=== PATIENT | male | born 1960 | race Hispanic/Latino ===

== ENCOUNTER 2018-01-18 13:10 | Emergency (ER) | payer MEDICARE ==
[2018-01-18] MEDS ORDERED: KEPPRA 1,000 MG/NS 0.75% 100ML 1,000 MG/100 ML BAG IV ONE (14:03)
[2018-01-18 14:58] LABS: Basophils # (Auto) 0.1 K/mm3 (0.0-0.1); Eosinophils # (Auto) 0.3 K/mm3 (0.0-0.4); Hematocrit 36.6 % (35.5-45.6); Hemoglobin 12.3 gm/dl (11.8-15.2); Lymphocytes # (Auto) 1.5 K/mm3 (1.2-5.4); Mean Corpuscular HGB Conc 34 % (32-34); Mean Corpuscular Hemoglobin 31 pg (28-32); Mean Corpuscular Volume 91 fl (84-94); Platelet Count 200 K/mm3 (140-440); Red Blood Count 4.04 M/mm3 (3.65-5.03); Red Cell Distribution Width 15.4 % (13.2-15.2)
[2018-01-18] MEDS ORDERED: FIORICET PO ONE (15:06)
[2018-01-18 15:12] LABS: INR 0.98 (0.87-1.13); Partial Thromboplastin Time 34.9 Sec. (24.2-36.6)
[2018-01-18 15:13] LABS: Creatine Kinase MB 1.5 ng/mL (0.0-4.0)
--- NOTE | 2018-01-18 15:14 | Emergency Department Report ---
HPI - General Chief Complaint: Fall Time Seen by Provider: 01/18/18 15:03 - HPI HPI: Room 5 The patient is a 57-year-old male presenting with a chief complaint of pain after fall. The patient states approximately 2 days ago he slipped and fell. Patient complains of pain in the head, neck and low back from the fall. The patient states this morning he had a seizure when he awakened he has had pain in the back of the left shoulder. The patient states there was a span of 10 days where he did not take his Keppra. Patient states he restarted his Keppra yesterday. Patient gets his pain score of 6-7/10 Location: [See above] Duration: [See above] Quality: Pain Severity:6-7/10 Modifying factors: [see above] Context: [see above] Mode of transportation: Unknown ED Past Medical Hx - Past Medical History Hx Hypertension: Yes Hx GERD: Yes Hx Arthritis: Yes Hx Seizures: Yes Additional medical history: Migraines, A fib - Surgical History Hx Cholecystectomy: Yes Hx Appendectomy: Yes Additional Surgical History: Ablation x2 for A fib, gastric sleeve, bilateral hip replacement - Family History Family history: no significant - Social History Smoking Status: Never Smoker Substance Use Type: None, Alcohol (rarely), Marijuana - Medications Home Medications: Home Medications Medication Instructions Recorded Confirmed Last Taken Type ARIPiprazole [Abilify] 10 mg PO DAILY 01/18/18 01/18/18 Unknown History Butalb/Acetamin/Caff 50-325-40 2 tab PO Q8H PRN #10 tab 01/18/18 Unknown Rx [Fioricet] Cyclobenzaprine [Flexeril] 10 mg PO TID PRN #14 tablet 01/18/18 Unknown Rx Entecavir 1 mg PO QDAY 01/18/18 01/18/18 Unknown History Flecainide [Tambocor] 50 mg PO BID 01/18/18 01/18/18 Unknown History Ibuprofen [Motrin 800 MG tab] 800 mg PO Q8HR PRN #20 tablet 01/18/18 Unknown Rx Omeprazole 40 mg PO QDAY 01/18/18 01/18/18 Unknown History Pregabalin [Lyrica] 100 mg PO BID 01/18/18 01/18/18 Unknown History Quetiapine Fumarate [SEROquel] 1 - 2 tab PO HS PRN 01/18/18 01/18/18 Unknown History Rivaroxaban [Xarelto] 20 mg PO QDAY 01/18/18 01/18/18 Unknown History Tamsulosin [Flomax] 0.4 mg PO QDAY 01/18/18 01/18/18 Unknown History Tolterodine Tartrate [Detrol] 2 mg PO QDAY 01/18/18 01/18/18 Unknown History Trazodone HCl 300 mg PO HS 01/18/18 01/18/18 Unknown History levETIRAcetam [Keppra TAB] 1,500 mg PO BID 01/18/18 01/18/18 Unknown History ED Review of Systems ROS: Stated complaint: NECK/BACK/SHOULDER PAIN Other details as noted in HPI Musculoskeletal: back pain, arthralgia Neurological: headache Physical Exam - Physical Exam Vital Signs: Vital Signs 01/18/18 01/18/18 13:14 14:21 Temperature 98.6 F Pulse Rate 84 67 Respiratory 16 11 L Rate Blood Pressure 105/69 O2 Sat by Pulse 96 96 Oximetry Physical Exam: GENERAL: The patient is well-developed well-nourished male lying on stretcher not appear to be in acute distress. [] HEENT: Normocephalic. Atraumatic. Extraocular motions are intact. Patient has moist mucous membranes. NECK: Supple. Trachea midline. Neck pain but no actual step off CHEST/LUNGS: Clear to auscultation. There is no respiratory distress noted. HEART/CARDIOVASCULAR: Regular. There is no tachycardia. There is no gallop rub or murmur. ABDOMEN: Abdomen is soft, nontender. Patient has normal bowel sounds. There is no abdominal distention. SKIN: There is no rash. There is no edema. There is no diaphoresis. NEURO: The patient is awake, alert, and oriented. The patient is cooperative. The patient has normal speech MUSCULOSKELETAL: There is tenderness to palpation of the posterior aspect of the left shoulder. There is no evidence of acute injury. ED Course Vital Signs 01/18/18 01/18/18 13:14 14:21 Temperature 98.6 F Pulse Rate 84 67 Respiratory 16 11 L Rate Blood Pressure 105/69 O2 Sat by Pulse 96 96 Oximetry ED Medical Decision Making - Lab Data Result diagrams: 01/18/18 14:26 01/18/18 14:26 - Radiology Data Radiology results: report reviewed (CT head, CT cervical spine), image reviewed (CT head, CT cervical spine, lumbar spine x-ray, coccyx x-ray, left shoulder x- ray) interpreted by me: Coccyx x-ray-no acute fracture Lumbar spine x-ray-no acute fracture left shoulder x-ray-no acute fracture or dislocation [address] [address] Cat Scan Report Signed Patient: ROSA TAMAYO JR MR#: [id number] : 1960 Acct:[id number] Age/Sex: 57 / M ADM Date: 01/18/18 Loc: ED Attending Dr: Ordering Physician: ROSIE BROWN MD Date of Service: 01/18/18 Procedure(s): CT head/brain wo con Accession Number(s): [id number] cc: ROSIE BROWN MD FINAL REPORT EXAM: CT HEAD/BRAIN WO CON HISTORY: headache, seizure, fall TECHNIQUE: CT examination of the head without IV contrast PRIORS: None. FINDINGS: No acute air-fluid level visualized in the included air-filled sinuses. Bone windows demonstrate no acute fracture. The brain is without mass, mass effect, hemorrhage, or acute infarct. There is no extra-axial intracranial bleed, brain bleed, or midline shift. The ventricles and sulci are age-appropriate. IMPRESSION: No acute CVA, intracranial bleed, or brain mass Transcribed By: BLAIRE Dictated By: LAUREN SOTO MD Electronically Authenticated By: LAUREN SOTO MD Signed Date/Time: 01/18/181612 DD/ 12 TD/TT: 01/18/[address] [address] Cat Scan Report Signed Patient: ROSA TAMAYO JR MR#: [id number] : 1960 Acct:[id number] Age/Sex: 57 / M ADM Date: 01/18/18 Loc: ED Attending Dr: Ordering Physician: ROSIE BROWN MD Date of Service: 01/18/18 Procedure(s): CT cervical spine wo con Accession Number(s): [id number] cc: ROSIE BROWN MD FINAL REPORT EXAM: CT CERVICAL SPINE WO CON HISTORY: pain after fall TECHNIQUE: CT examination of the cervical spine without IV contrast PRIORS: None. FINDINGS: Prevertebral soft tissues are without swelling. No evidence of cervical fracture or vertebral compression. Multilevel degenerative changes are present at the vertebral endplates, facet joints, and uncinate joints. Anterolisthesis: None. Retrolisthesis: C2-3 trace, C5-6 trace Disc narrowing: C2-3 slight, C3-4 slight, C5-6 severe, C6-7 severe Vertebral endplate, uncinate, and facet degenerative hypertrophic change is associated with bilateral osseous neural foraminal stenosis. IMPRESSION: No acute skeletal pathology in the cervical spine Multilevel degenerative change, trace retrolisthesis, disc narrowing, and neural foraminal stenosis Transcribed By: BAL Dictated By: LAUREN SOTO MD Electronically Authenticated By: LAUREN SOTO MD Signed Date/Time: 01/18/181635 DD/ 35 TD/TT: 01/18/181635 - Medical Decision Making Although patient is allergic to Toradol he states he is able to take ibuprofen - Differential Diagnosis closed head injury, rotator cuff injury, cervical strain, cervical fracture Critical care attestation.: If time is entered above; I have spent that time in minutes in the direct care of this critically ill patient, excluding procedure time. ED Disposition Clinical Impression: Closed head injury, Contusion of left shoulder, Acute lumbar myofascial strain , Seizure disorder, Acute cervical myofascial strain Disposition: - TO HOME OR SELFCARE Is pt being admited?: No Does the pt Need Aspirin: No Condition: Stable Instructions: Muscle Strain (ED) Additional Instructions: Return to the emergency department immediately should you develop worsening symptoms, fever, inability to tolerate food or liquid or any other concerns. Prescriptions: Butalb/Acetamin/Caff 50-325-40 [Fioricet] 2 tab PO Q8H PRN #10 tab PRN Reason: Headache Cyclobenzaprine [Flexeril] 10 mg PO TID PRN #14 tablet PRN Reason: Muscle Spasm Ibuprofen [Motrin 800 MG tab] 800 mg PO Q8HR PRN #20 tablet PRN Reason: Pain Referrals: ZOË DEL CID MD [Staff Physician] - 3-5 Days (Dr. Del Cid is an orthopedic surgeon. Please follow up with him for further evaluation) Time of Disposition: 16:51
[2018-01-18 15:15] LABS: BUN/Creatinine Ratio 22; Blood Urea Nitrogen 13 mg/dL (9-20); Calcium 8.8 mg/dL (8.4-10.2); Hemolysis Index 12
--- NOTE | 2018-01-18 16:18 | Cat Scan Report ---
FINAL REPORT EXAM: CT HEAD/BRAIN WO CON HISTORY: headache, seizure, fall TECHNIQUE: CT examination of the head without IV contrast PRIORS: None. FINDINGS: No acute air-fluid level visualized in the included air-filled sinuses. Bone windows demonstrate no acute fracture. The brain is without mass, mass effect, hemorrhage, or acute infarct. There is no extra-axial intracranial bleed, brain bleed, or midline shift. The ventricles and sulci are age-appropriate. IMPRESSION: No acute CVA, intracranial bleed, or brain mass
--- NOTE | 2018-01-18 16:42 | Cat Scan Report ---
FINAL REPORT EXAM: CT CERVICAL SPINE WO CON HISTORY: pain after fall TECHNIQUE: CT examination of the cervical spine without IV contrast PRIORS: None. FINDINGS: Prevertebral soft tissues are without swelling. No evidence of cervical fracture or vertebral compression. Multilevel degenerative changes are present at the vertebral endplates, facet joints, and uncinate joints. Anterolisthesis: None. Retrolisthesis: C2-3 trace, C5-6 trace Disc narrowing: C2-3 slight, C3-4 slight, C5-6 severe, C6-7 severe Vertebral endplate, uncinate, and facet degenerative hypertrophic change is associated with bilateral osseous neural foraminal stenosis. IMPRESSION: No acute skeletal pathology in the cervical spine Multilevel degenerative change, trace retrolisthesis, disc narrowing, and neural foraminal stenosis
--- NOTE | 2018-01-18 17:29 | XRay Report ---
FINAL REPORT EXAM: XR SHOULDER 2+V LT HISTORY: pain after fall/ shoulder pain TECHNIQUE: 3 views of the left shoulder PRIORS: None. FINDINGS: Degenerative arthrosis is present at the AC joint with articular surface irregularity and marginal hypertrophy. Degenerative change at the glenohumeral joint is associated with articular surface irregularity. No acute fracture or dislocation is evident. IMPRESSION: No acute skeletal pathology
--- NOTE | 2018-01-18 17:29 | XRay Report ---
FINAL REPORT EXAM: XR SPINE SACRUM/COCCYX 2+V HISTORY: pain after fall/ tailbone pain TECHNIQUE: 3 views of the sacrum and coccyx PRIORS: None. FINDINGS: Partly visible bilateral hip arthroplasty. Degenerative change in the visible lumbar spine and pelvis. The visualized sacrum and coccyx are intact. They are partly obscured by superimposed anatomy, limiting the examination. There is no visualized fracture, dislocation, or subluxation. IMPRESSION: No evidence of acute pathology in the visualized skeleton
--- NOTE | 2018-01-18 17:34 | XRay Report ---
FINAL REPORT EXAM: XR SPINE LUMBOSACRAL 2-3V HISTORY: pain after fall/ lower back pain TECHNIQUE: 3 views of the lumbar spine PRIORS: Sacrum and coccyx 01/18/2018 FINDINGS: Prominent stool in rectum and sigmoid. Partly imaged bilateral hip arthroplasty. 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 L6 is sacralized. Vertebral compression fracture: None Anterolisthesis: None Retrolisthesis: None Disc narrowing: L6-S1 narrowed disc may be developmental variation Degenerative change: Multilevel at the vertebral endplates and facet joints. IMPRESSION: No acute skeletal pathology Prominent stool in rectum and sigmoid Suggestion of developmental variation with 6 lumbar type vertebrae and partial sacralization of L6
[2018-01-18 17:51] VITALS: BP 120/70
== END 2018-01-18 17:22 | disposition home or self-care (01) ==
LOC: ED 13:10
DX: S40.012A Contusion of left shoulder, initial encounter (principal); S39.012A Strain of muscle, fascia and tendon of lower back, initial encounter; S16.1XXA Strain of muscle, fascia and tendon at neck level, initial encounter; S09.90XA Unspecified injury of head, initial encounter; G40.909 Epilepsy, unspecified, not intractable, without status epilepticus; I10 Essential (primary) hypertension; K21.9 Gastro-esophageal reflux disease without esophagitis; M19.90 Unspecified osteoarthritis, unspecified site; G43.909 Migraine, unspecified, not intractable, without status migrainosus; W01.0XXA Fall on same level from slipping, tripping and stumbling without subsequent striking against object, initial encounter; Y93.89 Activity, other specified; Y92.89 Other specified places as the place of occurrence of the external cause; Y99.8 Other external cause status
CPT/HCPCS: 36415; 70450; 72100; 72125; 72220; 73030; 80048; 82550; 82553; 83735; 84484; 85025; 85610; 85730; 93005; 93010; 96374; 99285; J1953

== ENCOUNTER 2018-01-25 14:01 | Emergency (ER) | payer SELFPAY ==
[2018-01-25 14:30] VITALS: BP 111/50
== END 2018-01-25 19:58 | disposition left against medical advice (07) ==
LOC: ED 14:01
DX: R10.9 Unspecified abdominal pain (principal); Z53.21 Procedure and treatment not carried out due to patient leaving prior to being seen by health care provider

== ENCOUNTER 2018-02-06 11:23 | Emergency (ER) | payer MEDICARE ==
[2018-02-06] MEDS ORDERED: MOTRIN PO ONE (13:38)
--- NOTE | 2018-02-06 13:43 | Emergency Department Report ---
ED Lower Extremity HPI - General Chief Complaint: Extremity Problem,Nontraumatic Stated Complaint: L HIP PAIN Time Seen by Provider: 02/06/18 13:34 Source: patient Mode of arrival: Ambulatory Limitations: No Limitations - History of Present Illness Initial Comments: This is a 58-year-old male nontoxic, well nourished in appearance, no acute signs of distress presents to the ED with c/o of left hip pain x1 week. Patient stated he had a total hip replacement in 2016. Patient denies any trauma or falling. Patient stated he is not aware of any injuries. Patient denies decreased ROM, numbness or tingling. Patient denies any headache, nausea , vomiting, chest pain, shortness of breathe, fever, chills, back pain. Patient denies decreased or abnormal gait. Patient stated allergies to codeine and Tradol but stated takes MOtrin with no allergies. Patient states past history includes arthritis, GERD, hypertension and seizures. MD Complaint: hip injury -: week(s) (1) Injury: Hip: Left Severity: mild Severity scale (0 -10): 8 Improves With: immobilization Worsens With: movement, palpation Associated Symptoms: ambulatory. denies: snap/pop sensation, swelling, numbness , tingling, unable to bear weight, able to partially bear weight - Related Data Home Medications Medication Instructions Recorded Confirmed Last Taken ARIPiprazole [Abilify] 10 mg PO DAILY 01/18/18 01/18/18 Unknown Entecavir 1 mg PO QDAY 01/18/18 01/18/18 Unknown Flecainide [Tambocor] 50 mg PO BID 01/18/18 01/18/18 Unknown Omeprazole 40 mg PO QDAY 01/18/18 01/18/18 Unknown Pregabalin [Lyrica] 100 mg PO BID 01/18/18 01/18/18 Unknown Quetiapine Fumarate [SEROquel] 1 - 2 tab PO HS PRN 01/18/18 01/18/18 Unknown Rivaroxaban [Xarelto] 20 mg PO QDAY 01/18/18 01/18/18 Unknown Tamsulosin [Flomax] 0.4 mg PO QDAY 01/18/18 01/18/18 Unknown Tolterodine Tartrate [Detrol] 2 mg PO QDAY 01/18/18 01/18/18 Unknown Trazodone HCl 300 mg PO HS 01/18/18 01/18/18 Unknown levETIRAcetam [Keppra TAB] 1,500 mg PO BID 01/18/18 01/18/18 Unknown Previous Rx's Medication Instructions Recorded Last Taken Type Butalb/Acetamin/Caff 50-325-40 2 tab PO Q8H PRN #10 tab 01/18/18 Unknown Rx [Fioricet] Cyclobenzaprine [Flexeril] 10 mg PO TID PRN #14 tablet 01/18/18 Unknown Rx Ibuprofen [Motrin 800 MG tab] 800 mg PO Q8HR PRN #20 tablet 01/18/18 Unknown Rx Ibuprofen [Motrin] 600 mg PO Q8H PRN #30 tablet 02/06/18 Unknown Rx Allergies Allergy/AdvReac Type Severity Reaction Status Date / Time codeine Allergy Rash Verified 01/18/18 13:21 ketorolac [From Toradol] AdvReac Headache Verified 01/18/18 13:21 ED Review of Systems ROS: Stated complaint: L HIP PAIN Other details as noted in HPI Constitutional: denies: chills, fever Eyes: denies: eye pain, eye discharge, vision change ENT: denies: ear pain, throat pain Respiratory: denies: cough, shortness of breath, wheezing Cardiovascular: denies: chest pain, palpitations Endocrine: no symptoms reported Gastrointestinal: denies: abdominal pain, nausea, diarrhea Genitourinary: denies: urgency, dysuria Musculoskeletal: arthralgia. denies: back pain, joint swelling Skin: denies: rash, lesions Neurological: denies: headache, weakness, paresthesias Psychiatric: denies: anxiety, depression Hematological/Lymphatic: denies: easy bleeding, easy bruising ED Past Medical Hx - Past Medical History Hx Hypertension: Yes Hx GERD: Yes Hx Arthritis: Yes Hx Seizures: Yes Additional medical history: Migraines, A fib - Surgical History Hx Cholecystectomy: Yes Hx Appendectomy: Yes Additional Surgical History: Ablation x2 for A fib, gastric sleeve, bilateral hip replacement - Social History Smoking Status: Never Smoker Substance Use Type: None - Medications Home Medications: Home Medications Medication Instructions Recorded Confirmed Last Taken Type ARIPiprazole [Abilify] 10 mg PO DAILY 01/18/18 01/18/18 Unknown History Butalb/Acetamin/Caff 50-325-40 2 tab PO Q8H PRN #10 tab 01/18/18 Unknown Rx [Fioricet] Cyclobenzaprine [Flexeril] 10 mg PO TID PRN #14 tablet 01/18/18 Unknown Rx Entecavir 1 mg PO QDAY 01/18/18 01/18/18 Unknown History Flecainide [Tambocor] 50 mg PO BID 01/18/18 01/18/18 Unknown History Ibuprofen [Motrin 800 MG tab] 800 mg PO Q8HR PRN #20 tablet 01/18/18 Unknown Rx Omeprazole 40 mg PO QDAY 01/18/18 01/18/18 Unknown History Pregabalin [Lyrica] 100 mg PO BID 01/18/18 01/18/18 Unknown History Quetiapine Fumarate [SEROquel] 1 - 2 tab PO HS PRN 01/18/18 01/18/18 Unknown History Rivaroxaban [Xarelto] 20 mg PO QDAY 01/18/18 01/18/18 Unknown History Tamsulosin [Flomax] 0.4 mg PO QDAY 01/18/18 01/18/18 Unknown History Tolterodine Tartrate [Detrol] 2 mg PO QDAY 01/18/18 01/18/18 Unknown History Trazodone HCl 300 mg PO HS 01/18/18 01/18/18 Unknown History levETIRAcetam [Keppra TAB] 1,500 mg PO BID 01/18/18 01/18/18 Unknown History Ibuprofen [Motrin] 600 mg PO Q8H PRN #30 tablet 02/06/18 Unknown Rx ED Physical Exam - General Limitations: No Limitations General appearance: alert, in no apparent distress - Head Head exam: Present: atraumatic, normocephalic - Eye Eye exam: Present: normal appearance, PERRL, EOMI Pupils: Present: normal accommodation - ENT ENT exam: Present: normal exam, mucous membranes moist - Neck Neck exam: Present: normal inspection, full ROM. Absent: tenderness, meningismus, lymphadenopathy - Respiratory Respiratory exam: Present: normal lung sounds bilaterally. Absent: respiratory distress, wheezes, rales, rhonchi, stridor - Cardiovascular Cardiovascular Exam: Present: regular rate, normal rhythm, normal heart sounds. Absent: bradycardia, tachycardia, irregular rhythm, systolic murmur, diastolic murmur, rubs, gallop - GI/Abdominal GI/Abdominal exam: Present: soft, normal bowel sounds - Rectal Rectal exam: Present: deferred - Extremities Exam Extremities exam: Present: normal inspection, full ROM, tenderness, normal capillary refill. Absent: pedal edema, joint swelling, calf tenderness - Expanded Lower Extremity Exam Left Hip exam: Present: normal inspection, full ROM, tenderness, ecchymosis, external rotation, internal rotation, pelvic stability. Absent: swelling, abrasion, laceration, deformity, crepidus, dislocation, erythema, shortening Upper Leg exam: Present: normal inspection, full ROM. Absent: tenderness, swelling, abrasion, laceration, ecchymosis, deformity, crepidus, dislocation, erythema Knee exam: Present: normal inspection, full ROM Lower Leg exam: Present: normal inspection, full ROM Ankle exam: Present: normal inspection, full ROM Foot/Toe exam: Present: normal inspection, full ROM Neuro vascular tendon exam: Present: no vascular compromise. Absent: pulse deficit, abnormal cap refill, motor deficit, sensory deficit, tendon deficit, extremity cold to touch, pallor, abnormal 2-point discrimination, decreased fine /light touch, foot drop, peroneal nerve deficit, significant pain with passive ROM of distal joint Gait: Positive: observed and normal 1 - pain here with ecchymosis - Back Exam Back exam: Present: normal inspection - Neurological Exam Neurological exam: Present: alert, oriented X3, normal gait - Psychiatric Psychiatric exam: Present: depressed, suicidal ideation - Skin Skin exam: Present: warm, dry, intact, normal color. Absent: rash ED Course Vital Signs 02/06/18 11:38 Temperature 97.8 F Pulse Rate 64 Respiratory 18 Rate Blood Pressure 120/64 O2 Sat by Pulse 96 Oximetry - Reevaluation(s) Reevaluation #1: 02/06/18 13:45 Patient is speaking in full sentences with no signs of distress noted. ED Lower Extremity MDM - Medical Decision Making This is a 58-year-old male that presents with left hip strain. Patient is stable and was examined by me. I referred patient to an orthopedic doctor for further evaluation for possible MRI. Ct left LE has been obtained and dictated by the radiologist. Patient is notified of the ct results report with noted by the patient. Patient does have normal gait with no tenderness and no joint swelling. No signs of symptoms of brusitis. No ecchymosis. no joint redness or swelling. Not warm to touch. No signs of cellulites present. Patient was instructed to RICE therapy. Patient received Motrin for pain. Patient is discharged with Motrin. At time of discharge, the patient does not seem toxic or ill in appearance. No acute signs of distress noted. Patient agrees to discharge treatment plan of care. No further questions noted by the patient. When I came to discharge the patient, he asked if he can talk to me. When he started to talk to me, patient stated that he wants to commit suicide and has been depressed. I asked patient if he has a plan and he stated he has about 10 different plans from CURRENT. Patient was then spoken with Zurdo Daugherty and was transferred to the main side for admission and 1013 for psychiatric evaluation. Critical care attestation.: If time is entered above; I have spent that time in minutes in the direct care of this critically ill patient, excluding procedure time. ED Disposition Clinical Impression: Suicidal thoughts Strain of left hip Qualifiers: Encounter type: initial encounter Qualified Code(s): S76.012A - Strain of muscle, fascia and tendon of left hip, initial encounter Depression Qualifiers: Depression Type: unspecified Qualified Code(s): F32.9 - Major depressive disorder, single episode, unspecified Disposition: 09 OP ADMIT IP TO THIS HOSP Is pt being admited?: No Does the pt Need Aspirin: No Condition: Stable Instructions: Ibuprofen (By mouth), Arthralgia (ED) Additional Instructions: Follow-up with a orthopedic doctor in 3-5 days or if symptoms worsen and continue return to emergency room as soon as possible. Prescriptions: Ibuprofen [Motrin] 600 mg PO Q8H PRN #30 tablet PRN Reason: Pain Referrals: PRIMARY CARE, [Primary Care Provider] - 3-5 Days ZOË PLATT MD [Staff Physician] - 3-5 Days [facility] [Outside] - 3-5 Days [facility] [Outside] - 3-5 Days
--- NOTE | 2018-02-06 16:45 | Cat Scan Report ---
FINAL REPORT PROCEDURE: CT left hip without contrast. TECHNIQUE: Computerized axial tomography of the LEFT hip was performed without contrast. HISTORY: Left hip and femur pain. COMPARISON: No prior studies are available for comparison. FINDINGS: There is a total left hip prosthesis in satisfactory position. There are no fractures identified. There is surrounding soft tissues are unremarkable. IMPRESSION: Left hip prosthesis. No evidence of fracture.
--- NOTE | 2018-02-06 17:26 | Emergency Department Report ---
ED Psych HPI - General Chief Complaint: Extremity Problem,Nontraumatic Stated Complaint: L HIP PAIN Time Seen by Provider: 02/06/18 13:34 Source: patient Mode of arrival: Ambulatory - History of Present Illness Initial Comments: Patient is a 58-year-old male who presented with suicidal ideations. Patient's initial complaint was left hip pain for approximately upon his discharge patient was admitted that he is feeling suicidal. Patient states she' s been having thoughts of tying something around his neck and hanging himself. Patient states she's been looking a little looking for ways that he can kill himself. Patient states he would like an evaluation because he is afraid that if he leaves he'll be position where he'll hurt himself. Patient has a history of bipolar disorder and feels as though he is in a depressive phase at this time. - Related Data Home Medications Medication Instructions Recorded Confirmed Last Taken ARIPiprazole [Abilify] 10 mg PO DAILY 01/18/18 01/18/18 Unknown Entecavir 1 mg PO QDAY 01/18/18 01/18/18 Unknown Flecainide [Tambocor] 50 mg PO BID 01/18/18 01/18/18 Unknown Omeprazole 40 mg PO QDAY 01/18/18 01/18/18 Unknown Pregabalin [Lyrica] 100 mg PO BID 01/18/18 01/18/18 Unknown Quetiapine Fumarate [SEROquel] 1 - 2 tab PO HS PRN 01/18/18 01/18/18 Unknown Rivaroxaban [Xarelto] 20 mg PO QDAY 01/18/18 01/18/18 Unknown Tamsulosin [Flomax] 0.4 mg PO QDAY 01/18/18 01/18/18 Unknown Tolterodine Tartrate [Detrol] 2 mg PO QDAY 01/18/18 01/18/18 Unknown Trazodone HCl 300 mg PO HS 01/18/18 01/18/18 Unknown levETIRAcetam [Keppra TAB] 1,500 mg PO BID 01/18/18 01/18/18 Unknown Previous Rx's Medication Instructions Recorded Last Taken Type Butalb/Acetamin/Caff 50-325-40 2 tab PO Q8H PRN #10 tab 01/18/18 Unknown Rx [Fioricet] Cyclobenzaprine [Flexeril] 10 mg PO TID PRN #14 tablet 01/18/18 Unknown Rx Ibuprofen [Motrin 800 MG tab] 800 mg PO Q8HR PRN #20 tablet 01/18/18 Unknown Rx Ibuprofen [Motrin] 600 mg PO Q8H PRN #30 tablet 02/06/18 Unknown Rx Allergies Allergy/AdvReac Type Severity Reaction Status Date / Time codeine Allergy Rash Verified 01/18/18 13:21 ketorolac [From Toradol] AdvReac Headache Verified 01/18/18 13:21 ED Review of Systems ROS: Stated complaint: L HIP PAIN Other details as noted in HPI Comment: All other systems reviewed and negative Constitutional: denies: chills, fever Eyes: denies: eye pain, eye discharge, vision change ENT: denies: ear pain, throat pain Respiratory: denies: cough, shortness of breath, wheezing Cardiovascular: denies: chest pain, palpitations Endocrine: no symptoms reported Gastrointestinal: denies: abdominal pain, nausea, diarrhea Genitourinary: denies: urgency, dysuria Musculoskeletal: arthralgia. denies: back pain, joint swelling Skin: denies: rash, lesions Neurological: denies: headache, weakness, paresthesias Psychiatric: denies: anxiety, depression Hematological/Lymphatic: denies: easy bleeding, easy bruising ED Past Medical Hx - Past Medical History Hx Hypertension: Yes Hx GERD: Yes Hx Arthritis: Yes Hx Seizures: Yes Additional medical history: Migraines, A fib - Surgical History Hx Cholecystectomy: Yes Hx Appendectomy: Yes Additional Surgical History: Ablation x2 for A fib, gastric sleeve, bilateral hip replacement - Social History Smoking Status: Never Smoker Substance Use Type: None - Medications Home Medications: Home Medications Medication Instructions Recorded Confirmed Last Taken Type ARIPiprazole [Abilify] 10 mg PO DAILY 01/18/18 01/18/18 Unknown History Butalb/Acetamin/Caff 50-325-40 2 tab PO Q8H PRN #10 tab 01/18/18 Unknown Rx [Fioricet] Cyclobenzaprine [Flexeril] 10 mg PO TID PRN #14 tablet 01/18/18 Unknown Rx Entecavir 1 mg PO QDAY 01/18/18 01/18/18 Unknown History Flecainide [Tambocor] 50 mg PO BID 01/18/18 01/18/18 Unknown History Ibuprofen [Motrin 800 MG tab] 800 mg PO Q8HR PRN #20 tablet 01/18/18 Unknown Rx Omeprazole 40 mg PO QDAY 01/18/18 01/18/18 Unknown History Pregabalin [Lyrica] 100 mg PO BID 01/18/18 01/18/18 Unknown History Quetiapine Fumarate [SEROquel] 1 - 2 tab PO HS PRN 01/18/18 01/18/18 Unknown History Rivaroxaban [Xarelto] 20 mg PO QDAY 01/18/18 01/18/18 Unknown History Tamsulosin [Flomax] 0.4 mg PO QDAY 01/18/18 01/18/18 Unknown History Tolterodine Tartrate [Detrol] 2 mg PO QDAY 01/18/18 01/18/18 Unknown History Trazodone HCl 300 mg PO HS 01/18/18 01/18/18 Unknown History levETIRAcetam [Keppra TAB] 1,500 mg PO BID 01/18/18 01/18/18 Unknown History Ibuprofen [Motrin] 600 mg PO Q8H PRN #30 tablet 02/06/18 Unknown Rx ED Physical Exam - General Limitations: No Limitations General appearance: alert, in no apparent distress - Head Head exam: Present: atraumatic, normocephalic - Eye Eye exam: Present: normal appearance - ENT ENT exam: Present: mucous membranes moist - Neck Neck exam: Present: normal inspection - Respiratory Respiratory exam: Present: normal lung sounds bilaterally. Absent: respiratory distress - Cardiovascular Cardiovascular Exam: Present: regular rate, normal rhythm. Absent: systolic murmur, diastolic murmur, rubs, gallop - GI/Abdominal GI/Abdominal exam: Present: soft, normal bowel sounds - Rectal Rectal exam: Present: deferred - Extremities Exam Extremities exam: Present: normal inspection - Back Exam Back exam: Present: normal inspection - Neurological Exam Neurological exam: Present: alert, oriented X3 - Psychiatric Psychiatric exam: Present: normal affect, normal mood - Skin Skin exam: Present: warm, dry, intact, normal color. Absent: rash ED Course Vital Signs 02/06/18 11:38 Temperature 97.8 F Pulse Rate 64 Respiratory 18 Rate Blood Pressure 120/64 O2 Sat by Pulse 96 Oximetry ED Medical Decision Making - Lab Data Result diagrams: 02/06/18 17:31 02/06/18 17:31 Lab Results 02/06/18 02/06/18 02/06/18 Range/Units 17:31 17:31 17:31 WBC 9.1 (4.5-11.0) K/mm3 RBC 3.94 (3.65-5.03) M/mm3 Hgb 11.9 (11.8-15.2) gm/dl Hct 36.4 (35.5-45.6) % MCV 92 (84-94) fl MCH 30 (28-32) pg MCHC 33 (32-34) % RDW 15.7 H (13.2-15.2) % Plt Count 255 (140-440) K/mm3 Lymph % (Auto) 31.4 (13.4-35.0) % [place] % (Auto) 10.7 H (0.0-7.3) % Eos % (Auto) 3.3 (0.0-4.3) % Baso % (Auto) 1.0 (0.0-1.8) % Lymph # 2.9 (1.2-5.4) K/mm3 [place] # 1.0 H (0.0-0.8) K/mm3 Eos # 0.3 (0.0-0.4) K/mm3 Baso # 0.1 (0.0-0.1) K/mm3 Seg Neutrophils % 53.6 (40.0-70.0) % Seg Neutrophils # 4.9 (1.8-7.7) K/mm3 Sodium 141 (137-145) mmol/L Potassium 4.8 (3.6-5.0) mmol/L Chloride 101.2 (98-107) mmol/L Carbon Dioxide 31 H (22-30) mmol/L Anion Gap 14 mmol/L BUN 15 (9-20) mg/dL Creatinine 0.6 L (0.8-1.5) mg/dL Estimated GFR > 60 ml/min BUN/Creatinine Ratio 25 % Glucose 93 (75-100) mg/dL Calcium 9.0 (8.4-10.2) mg/dL Salicylates < 0.3 L (2.8-20.0) mg/dL Acetaminophen (10.0-30.0) ug/mL Plasma/Serum Alcohol (0-0.07) % 02/06/18 02/06/18 Range/Units 17:31 17:31 WBC (4.5-11.0) K/mm3 RBC (3.65-5.03) M/mm3 Hgb (11.8-15.2) gm/dl Hct (35.5-45.6) % MCV (84-94) fl MCH (28-32) pg MCHC (32-34) % RDW (13.2-15.2) % Plt Count (140-440) K/mm3 Lymph % (Auto) (13.4-35.0) % [place] % (Auto) (0.0-7.3) % Eos % (Auto) (0.0-4.3) % Baso % (Auto) (0.0-1.8) % Lymph # (1.2-5.4) K/mm3 [place] # (0.0-0.8) K/mm3 Eos # (0.0-0.4) K/mm3 Baso # (0.0-0.1) K/mm3 Seg Neutrophils % (40.0-70.0) % Seg Neutrophils # (1.8-7.7) K/mm3 Sodium (137-145) mmol/L Potassium (3.6-5.0) mmol/L Chloride (98-107) mmol/L Carbon Dioxide (22-30) mmol/L Anion Gap mmol/L BUN (9-20) mg/dL Creatinine (0.8-1.5) mg/dL Estimated GFR ml/min BUN/Creatinine Ratio % Glucose (75-100) mg/dL Calcium (8.4-10.2) mg/dL Salicylates (2.8-20.0) mg/dL Acetaminophen < 5.0 L (10.0-30.0) ug/mL Plasma/Serum Alcohol < 0.01 (0-0.07) % - Medical Decision Making Patient is medically cleared for psych at this time and will be transferred to psych facility Critical care attestation.: If time is entered above; I have spent that time in minutes in the direct care of this critically ill patient, excluding procedure time. ED Disposition Clinical Impression: Suicidal thoughts Strain of left hip Qualifiers: Encounter type: initial encounter Qualified Code(s): S76.012A - Strain of muscle, fascia and tendon of left hip, initial encounter Depression Qualifiers: Depression Type: unspecified Qualified Code(s): F32.9 - Major depressive disorder, single episode, unspecified Disposition: DC/TX-65 PSY HOSP/PSY UNIT Is pt being admited?: No Condition: Stable Instructions: Ibuprofen (By mouth), Arthralgia (ED) Additional Instructions: Follow-up with a orthopedic doctor in 3-5 days or if symptoms worsen and continue return to emergency room as soon as possible. Prescriptions: Ibuprofen [Motrin] 600 mg PO Q8H PRN #30 tablet PRN Reason: Pain Referrals: [facility] [Outside] - 3-5 Days [facility] [Outside] - 3-5 Days PRIMARY CAREMD [Primary Care Provider] - 3-5 Days ZOË PLATT MD [Staff Physician] - 3-5 Days
[2018-02-06 17:46] LABS: Basophils # (Auto) 0.1 K/mm3 (0.0-0.1); Eosinophils # (Auto) 0.3 K/mm3 (0.0-0.4); Eosinophils % (Auto) 3.3 % (0.0-4.3); Hematocrit 36.4 % (35.5-45.6); Hemoglobin 11.9 gm/dl (11.8-15.2); Lymphocytes # (Auto) 2.9 K/mm3 (1.2-5.4); Lymphocytes % (Auto) 31.4 % (13.4-35.0); Mean Corpuscular HGB Conc 33 % (32-34); Mean Corpuscular Hemoglobin 30 pg (28-32); Mean Corpuscular Volume 92 fl (84-94); Monocytes % (Auto) 10.7 % (0.0-7.3); Platelet Count 255 K/mm3 (140-440); Red Blood Count 3.94 M/mm3 (3.65-5.03); Red Cell Distribution Width 15.7 % (13.2-15.2)
[2018-02-06 17:57] LABS: BUN/Creatinine Ratio 25; Blood Urea Nitrogen 15 mg/dL (9-20); Hemolysis Index 1
--- NOTE | 2018-02-07 04:42 | Emergency Department Report ---
HPI - General Chief Complaint: Extremity Problem,Nontraumatic Time Seen by Provider: 02/06/18 13:34 ED Past Medical Hx - Past Medical History Hx Hypertension: Yes Hx GERD: Yes Hx Arthritis: Yes Hx Seizures: Yes Additional medical history: Migraines, A fib - Surgical History Hx Cholecystectomy: Yes Hx Appendectomy: Yes Additional Surgical History: Ablation x2 for A fib, gastric sleeve, bilateral hip replacement - Social History Smoking Status: Never Smoker Substance Use Type: None - Medications Home Medications: Home Medications Medication Instructions Recorded Confirmed Last Taken Type ARIPiprazole [Abilify] 10 mg PO DAILY 01/18/18 01/18/18 Unknown History Butalb/Acetamin/Caff 50-325-40 2 tab PO Q8H PRN #10 tab 01/18/18 Unknown Rx [Fioricet] Cyclobenzaprine [Flexeril] 10 mg PO TID PRN #14 tablet 01/18/18 Unknown Rx Entecavir 1 mg PO QDAY 01/18/18 01/18/18 Unknown History Flecainide [Tambocor] 50 mg PO BID 01/18/18 01/18/18 Unknown History Ibuprofen [Motrin 800 MG tab] 800 mg PO Q8HR PRN #20 tablet 01/18/18 Unknown Rx Omeprazole 40 mg PO QDAY 01/18/18 01/18/18 Unknown History Pregabalin [Lyrica] 100 mg PO BID 01/18/18 01/18/18 Unknown History Quetiapine Fumarate [SEROquel] 1 - 2 tab PO HS PRN 01/18/18 01/18/18 Unknown History Rivaroxaban [Xarelto] 20 mg PO QDAY 01/18/18 01/18/18 Unknown History Tamsulosin [Flomax] 0.4 mg PO QDAY 01/18/18 01/18/18 Unknown History Tolterodine Tartrate [Detrol] 2 mg PO QDAY 01/18/18 01/18/18 Unknown History Trazodone HCl 300 mg PO HS 01/18/18 01/18/18 Unknown History levETIRAcetam [Keppra TAB] 1,500 mg PO BID 01/18/18 01/18/18 Unknown History Ibuprofen [Motrin] 600 mg PO Q8H PRN #30 tablet 02/06/18 Unknown Rx ED Review of Systems ROS: Stated complaint: L HIP PAIN Other details as noted in HPI Constitutional: denies: chills, fever Eyes: denies: eye pain, eye discharge, vision change ENT: denies: ear pain, throat pain Respiratory: denies: cough, shortness of breath, wheezing Cardiovascular: denies: chest pain, palpitations Endocrine: no symptoms reported Gastrointestinal: denies: abdominal pain, nausea, diarrhea Genitourinary: denies: urgency, dysuria Musculoskeletal: arthralgia. denies: back pain, joint swelling Skin: denies: rash, lesions Neurological: denies: headache, weakness, paresthesias Psychiatric: denies: anxiety, depression Hematological/Lymphatic: denies: easy bleeding, easy bruising Physical Exam - Physical Exam Vital Signs: Vital Signs 02/06/18 02/06/18 11:38 19:54 Temperature 97.8 F Pulse Rate 64 70 Respiratory 18 18 Rate Blood Pressure 120/64 Blood Pressure 114/65 [Left] O2 Sat by Pulse 96 99 Oximetry ED Course Vital Signs 02/06/18 02/06/18 11:38 19:54 Temperature 97.8 F Pulse Rate 64 70 Respiratory 18 18 Rate Blood Pressure 120/64 Blood Pressure 114/65 [Left] O2 Sat by Pulse 96 99 Oximetry ED Medical Decision Making - Lab Data Result diagrams: 02/06/18 17:31 02/06/18 17:31 - EKG Data -: EKG Interpreted by Me (EKG taken at 0436 hrs. is normal, with minor bradycardia, but o/w normal) EKG shows normal: sinus rhythm, axis, intervals, QRS complexes, ST-T waves Rate: bradycardia (EKG taken at 0436 hrs.) Critical care attestation.: If time is entered above; I have spent that time in minutes in the direct care of this critically ill patient, excluding procedure time. ED Disposition Clinical Impression: Medical clearance for psychiatric admission, Suicidal thoughts Disposition: DC/TX-70 ANOTHER TYPE HLTHCARE Is pt being admited?: No Does the pt Need Aspirin: No Condition: Stable Instructions: Ibuprofen (By mouth), Arthralgia (ED) Additional Instructions: Follow-up with a orthopedic doctor in 3-5 days or if symptoms worsen and continue return to emergency room as soon as possible. Prescriptions: Ibuprofen [Motrin] 600 mg PO Q8H PRN #30 tablet PRN Reason: Pain Referrals: [facility] [Outside] - 3-5 Days [facility] [Outside] - 3-5 Days PRIMARY CARE, [Primary Care Provider] - 3-5 Days ZOË PLATT MD [Staff Physician] - 3-5 Days Time of Disposition: 04:41
[2018-02-07 05:15] LABS: Amphetamine Screen,Urine PRESUMPTIVE NEGATIVE; Benzodiazepines Screen,Urine PRESUMPTIVE NEGATIVE; Cannabinoid Screen,Urine PRESUMPTIVE NEGATIVE; Cocaine Screen,Urine PRESUMPTIVE NEGATIVE; Methadone Screen,Urine PRESUMPTIVE NEGATIVE; Opiate Screen,Urine PRESUMPTIVE NEGATIVE
[2018-02-07 06:32] LABS: Mucus,Urine FEW /HPF
[2018-02-07 06:33] LABS: Bilirubin,Urine NEG (Negative); Blood,Urine NEG (Negative); Color,Urine Yellow (Yellow); Protein,Urine <15 mg/dL mg/dL (Negative); Urobilinogen,Urine < 2.0 mg/dL (<2.0)
[2018-02-08 07:56] VITALS: BP 137/93
[2018-02-08] MEDS ORDERED: KEPPRA PO ONE (13:05)
[2018-02-08] MEDS ORDERED: XARELTO PO ONE (13:05)
[2018-02-08] MEDS ORDERED: TAMBOCOR PO ONE (13:05)
--- NOTE | 2018-02-08 14:31 | Consultation ---
History of Present Illness - Reason for Consult Consult date: 02/08/18 Reason for consult: Mental Health Evaluation Requesting physician: MARGI BENZ - Chief Complaint Chief complaint: "I am not doing well" - History of Present Psychiatric Illness 58-year-old male who presented with suicidal ideations. The patient initially came to the ER for lower extremity pain. Today the patient is calm and cooperative during the assessment. He was a patient at [facility] prior to his arrival to the ER. He stated being suicidal because he felt like he wasn't ready to be discharged from [facility]. He stated being depressed for several reasons especially the of his mother and child within the past year. 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 He stated that he does not have a suicide plan at this time. He stated he need "serious help" for his mental state. He stated that he takes Cymbalta, Abilify, and Buspar with a hx of bipolar do. He denies HI's and AVH's. He denies erratic sleep and a poor appetite. He denies recreational drug use and excessive alcohol consumption (etoh). Medications and Allergies Allergies Allergy/AdvReac Type Severity Reaction Status Date / Time codeine Allergy Rash Verified 01/18/18 13:21 ketorolac [From Toradol] AdvReac Headache Verified 01/18/18 13:21 Home Medications Medication Instructions Recorded Confirmed Last Taken Type ARIPiprazole [Abilify] 10 mg PO DAILY 01/18/18 02/08/18 Unknown History Butalb/Acetamin/Caff 50-325-40 2 tab PO Q8H PRN #10 tab 01/18/18 02/08/18 Unknown Rx [Fioricet] Cyclobenzaprine [Flexeril] 10 mg PO TID PRN #14 tablet 01/18/18 02/08/18 Unknown Rx Entecavir 1 mg PO QDAY 01/18/18 02/08/18 Unknown History Flecainide [Tambocor] 50 mg PO BID 01/18/18 02/08/18 Unknown History Ibuprofen [Motrin 800 MG tab] 800 mg PO Q8HR PRN #20 tablet 01/18/18 02/08/18 Unknown Rx Omeprazole 40 mg PO QDAY 01/18/18 02/08/18 Unknown History Pregabalin [Lyrica] 100 mg PO BID 01/18/18 02/08/18 Unknown History Quetiapine Fumarate [SEROquel] 1 - 2 tab PO HS PRN 01/18/18 02/08/18 Unknown History Rivaroxaban [Xarelto] 20 mg PO QDAY 01/18/18 02/08/18 Unknown History Tamsulosin [Flomax] 0.4 mg PO QDAY 01/18/18 02/08/18 Unknown History Tolterodine Tartrate [Detrol] 2 mg PO QDAY 01/18/18 02/08/18 Unknown History Trazodone HCl 300 mg PO HS 01/18/18 02/08/18 Unknown History levETIRAcetam [Keppra TAB] 1,500 mg PO BID 01/18/18 02/08/18 Unknown History Ibuprofen [Motrin] 600 mg PO Q8H PRN #30 tablet 02/06/18 Unknown Rx Past psychiatric history - Past Medical History Past Medical History: GERD, seizures, other (Arthritis) Past Surgical History: Other (Bilateral Hip Replacements) - past Psychiatric treatment and history Psych: Bipolar psychiatric treatment history: Inpatient at [facility] recently. Denies a fam psy hx. - Social History Social history: Lives alone Mental Status Exam - Vital signs Last Vital Signs Temp 98.5 F 02/08/18 07:55 Pulse 54 L 02/08/18 07:55 Resp 16 02/08/18 08:30 BP 137/93 02/08/18 07:55 Pulse Ox 96 02/08/18 07:55 - Exam Narrative exam: MSE: Appearance: calm, cooperative Behavior: regular eye contact Speech: regular rate and tone Mood: "depressed" Affect: normal Thought Process: logical Thought Content: denies HI's and AVH's Motor Activity: lying in bed Cognition: A/O x 3 Insight: fair Judgment: variable Results Result Diagrams: 02/06/18 17:31 02/06/18 17:31 All other labs normal. Assessment and Plan Assessment and plan: Impression: Hx of Bipolar DO. Today the patient is calm and cooperative during the assessment. The patient endorses SI's. Recommendation/Plan: Continue 1013 with placement to [facility] today.
== END 2018-02-08 16:10 | disposition other institution (70) ==
LOC: ED 11:23
DX: R45.851 Suicidal ideations (principal); I10 Essential (primary) hypertension; K21.9 Gastro-esophageal reflux disease without esophagitis; M19.90 Unspecified osteoarthritis, unspecified site
CPT/HCPCS: 36415; 73700; 80048; 80307; 81001; 85025; 99285; G0480; 80320